=== PATIENT | female | born 1985 ===

== ENCOUNTER 2024-04-17 09:46 | Emergency (ER) | payer MEDICAID ==
[~2024-04-17] VITALS: Ht 162.6 cm; Wt 60.0 kg
[2024-04-17 10:08] VITALS: BP 149/105; PULSE 91; RESP 18; TEMP 37.1; O2SAT 100
[2024-04-17] MEDS ORDERED: TOPUD MT (12:12)
[2024-04-17] MEDS ORDERED: ACETAMINOPHEN 325MG TABLET PO ONE (12:15)
== END 2024-04-17 14:59 | disposition left against medical advice (07) ==
LOC: ER 09:51
DX: R51.9 Headache, unspecified (principal); J45.909 Unspecified asthma, uncomplicated
CPT/HCPCS: 99282